=== PATIENT | female | born 1980 | race Caucasian/White ===

== ENCOUNTER → 2017-03-04 | Outpatient (CLI) | payer BC ==
--- NOTE | 2017-03-04 07:52 | US ---
EXAMINATION TYPE: US pelvic complete DATE OF EXAM: 03/04/2017 COMPARISON: 07/25/2016 CLINICAL HISTORY: Previous Ovarian Cyst N83.20. TECHNIQUE: Transabdominal (TA) Date of LMP: 02/24/2017 EXAM MEASUREMENTS: Uterus: 9.8 x 3.8 x 4.0 cm Endometrial Stripe: 0.4 cm Right Ovary: 4.2 x 2.7 x 3.2 cm Left Ovary: 5.1 x 3.8 x 4.1 cm 1. Uterus: Anteverted 2. Endometrium: wnl 3. Right Ovary: wnl 4. Left Ovary: 3.5 x 2.2 x 4.1 cm cyst 5. Bilateral Adnexa: wnl 6. Posterior cul-de-sac: wnl IMPRESSION: 1. There is a 3.5 x 4.1 cm left ovarian cyst. This has a simple appearance and is slightly increased in size from previous exam.
== END | disposition home or self-care (01) ==
LOC: RADUSWWP 06:47
PROVIDERS: ATTEND Obstetrics & Gynecology
DX: N83.202 Unspecified ovarian cyst, left side (principal)
CPT/HCPCS: 76856

== ENCOUNTER → 2017-05-14 | Outpatient (CLI) | payer BC ==
[2017-05-14 09:54] LABS: EKG EKG PERFORMED
[2017-05-14 10:27] LABS: Anion Gap 11 mmol/L; Blood Urea Nitrogen 7 mg/dL (7-17); Calcium 9.3 mg/dL (8.4-10.2); Carbon Dioxide 20 mmol/L (22-30); Chloride 108 mmol/L (98-107); Glucose 80 mg/dL (74-99); Non-African American GFR(MDRD) >60 (>60 ml/min/1.73 sqM); Sodium 139 mmol/L (137-145)
[2017-05-14 10:48] LABS: Basophils # (A) 0.1 k/uL (0-0.2); Basophils % (A) 1 %; CH 30.9; Eosinophils # (A) 0.1 k/uL (0-0.7); Eosinophils % (A) 1 %; HCT 43.4 % (34.0-46.0); HDW 2.36; HGB 13.7 gm/dL (11.4-16.0); Luc # (Auto) 0.16; Luc % (Auto) 2; Lymphocytes # (A) 1.3 k/uL (1.0-4.8); Lymphocytes % (A) 17 %; MCH 30.6 pg (25.0-35.0); MCHC 31.6 g/dL (31.0-37.0); Mean Platelet Volume 7.6; Monocytes # (A) 0.3 k/uL (0-1.0); Monocytes % (A) 5 %; Neutrophils # (A) 5.7 k/uL (1.3-7.7); Neutrophils % (A) 75 %; RBC 4.48 m/uL (3.80-5.40); WBC 7.6 k/uL (3.8-10.6); WBC (Perox) 7.68
== END | disposition home or self-care (01) ==
LOC: LABWHC1 09:46
PROVIDERS: ATTEND Orthopaedic Surgery
DX: Z01.810 Encounter for preprocedural cardiovascular examination (principal); I49.49 Other premature depolarization; D61.3 Idiopathic aplastic anemia
CPT/HCPCS: 36415; 80048; 85025; 93005

== ENCOUNTER 2018-02-17 05:43 | Day surgery (SDC) | payer BC ==
[2018-02-10 09:30] VITALS: BMI 38.7
--- NOTE | 2018-02-16 14:40 | P.HPOB ---
History of Present Illness H&P Date: 02/16/18 Chief Complaint: Left ovarian cyst, pelvic pain, menorrhagia, family planning This is a 37-year-old female 1 para 1 who presents for laparoscopy with possible drainage of ovarian cysts, possible lysis of adhesions, and possible ablation of endometriosis. She has also consented to laparoscopic bilateral tubal ligation via fulguration in addition to dilation and curettage with hysteroscopy and NovaSure endometrial ablation secondary to menorrhagia with irregular cycle. She has had several ultrasounds that have consistently shown a left ovarian cyst measuring approximately 3-1/2 cm. She has tried control pills to help with her cyst pain and control her cycles, however her periods are still irregular and she continues to breakthrough bleed. She consistently has left pelvic pain at least twice a month which is sharp and stinging in nature and exacerbated by movement. The pain is severe when it hits but only lasts about 5 minutes. Obstetrical history: . History of 1 delivery due to preeclampsia Gynecologic history: No history of sexual transmitted diseases. She is currently using control pills for control. Social history: She is . She currently works as a field consultant with a [employer] Review of Systems Constitutional: Denies chills, Denies fever Eyes: denies blurred vision, denies pain Ears, nose, mouth and throat: Denies sore throat Cardiovascular: Denies chest pain, Denies shortness of breath Gastrointestinal: Reports diarrhea, Reports heartburn, Denies abdominal pain, Denies nausea, Denies vomiting Genitourinary: Reports dysmenorrhea, Reports pelvic pain Menstruation: Reports menses variable Musculoskeletal: Reports low back pain, Reports myalgias Integumentary: Denies pruritus, Denies rash Neurological: Reports headaches, Denies numbness, Denies weakness Psychiatric: Denies anxiety, Denies depression Endocrine: Denies fatigue, Denies weight change Past Medical History Past Medical History: GERD/Reflux, Osteoarthritis (OA) Additional Past Medical History / Comment(s): Hx. of HTN when . Hx. of a tick bite. States was not dx. with Lyme disease. History of hepatomegaly- testing within normal limits History of Any Multi-Drug Resistant Organisms: None Reported Past Surgical History: Adenoidectomy, Section, Cholecystectomy, Orthopedic Surgery Additional Past Surgical History / Comment(s): Colonoscopy and upper scope. L & R knee arthroscopy. R foot surgery with pins. Past Anesthesia/Blood Transfusion Reactions: No Reported Reaction Past Psychological History: No Psychological Hx Reported Smoking Status: Never smoker Past Alcohol Use History: None Reported Past Drug Use History: None Reported - Past Family History Mother Family Medical History: Diabetes Mellitus Father Family Medical History: Deep Vein Thrombosis (DVT) Medications and Allergies Home Medications Medication Instructions Recorded Confirmed Type Ibuprofen [Motrin] 800 mg PO DAILY 02/10/18 02/10/18 History Triestarylla 1 tab PO DAILY 02/10/18 02/10/18 History Turmeric Root Extract [Turmeric] 500 mg PO DAILY 02/10/18 02/10/18 History Allergies Allergy/AdvReac Type Severity Reaction Status Date / Time doxycycline Allergy Rash/Hives Verified 02/10/18 09:36 Exam Osteopathic Statement: *. No significant issues noted on an osteopathic structural exam other than those noted in the History and Physical/Consult. HEENT: Within normal limits Heart: Regular rate and rhythm Lungs: Clear to auscultation bilaterally Abdomen: Soft, nontender Pelvic exam: Uterus is small, anteverted, with no adnexal masses palpated however tenderness is noted on the uterus and the left adnexal region. Extremities: Negative Homans Assessment and Plan (1) Pelvic pain Status: Acute Code(s): R10.2 - PELVIC AND PERINEAL PAIN SNOMED Code(s): 15140623 (2) Left ovarian cyst Status: Acute Code(s): N83.202 - UNSPECIFIED OVARIAN CYST, LEFT SIDE SNOMED Code(s): 93699637 (3) Menorrhagia with irregular cycle Status: Acute Code(s): N92.1 - EXCESSIVE AND FREQUENT MENSTRUATION WITH IRREGULAR CYCLE SNOMED Code(s): 584184449 (4) Family planning Status: Acute Code(s): Z30.09 - ENCOUNTER FOR OTH GENERAL CNSL AND ADVICE ON CONTRACEPTION SNOMED Code(s): 329538368 Plan: Proceed with dilation and curettage with hysteroscopy and NovaSure endometrial ablation, laparoscopy with bilateral tubal ligation via fulguration and possible drainage of ovarian cysts, possible ablation of endometriosis, possible lysis of adhesions. I have discussed the risks, benefits, and alternative therapies for the above- mentioned procedure and for both sedation/anesthesia as well as necessary blood products administration, if indicated, as they pertain to this patient. The patient has indicated her understanding and acceptance of the risks and procedures discussed.
[~2018-02-17 05:43] MED LIST: DEXAMETHASONE SOD PHOSPHATE 10 MG/ML 1 ML VIAL IV ONE; HYDROmorphone 0.5 MG/0.5 ML SYRINGE IVP PRN; LACTATED RINGERS 1,000 ML IV SCH; LIDOCAINE 1% 20 ML VIAL (10MG/ML) FOR IV START INTRADERMA PRN; MIDAZOLAM 2 MG/2 ML VIAL IV PRN; ONDANSETRON 4 MG/2 ML VIAL IVP ONE; Pre Op ABX Message 1 EACH MISC MISCELLANE ONE; fentaNYL (PF) 50 MCG/ML 2 ML AMP IV PRN
[2018-02-17] MEDS ORDERED: fentaNYL (PF) 50 MCG/ML 2 ML AMP ONE (07:29)
[2018-02-17] MEDS ORDERED: NEOSTIGMINE 1 MG/ML 10 ML VIAL ONE (07:29)
[2018-02-17] MEDS ORDERED: PROPOFOL 10 MG/ML 20 ML VIAL IV ONE (07:29)
[2018-02-17] MEDS ORDERED: SUCCINYLCHOLINE CHLORIDE 100 MG/5 ML SYR IV ONE (07:29)
[2018-02-17] MEDS ORDERED: KETOROLAC 30 MG/ML 1 ML VIAL ONE (07:29)
[2018-02-17] MEDS ORDERED: LIDOCAINE 1% INJ 10MG/ML (20 ML MDV) ONE (07:29)
[2018-02-17] MEDS ORDERED: ROCURONIUM BROMIDE 10 MG/ML 10 ML VIAL IV ONE (07:29)
[2018-02-17] MEDS ORDERED: HYDROmorphone (PF) 1 MG/ML ONE (07:29)
[2018-02-17] MEDS ORDERED: MIDAZOLAM 2 MG/2 ML VIAL ONE (07:29)
[2018-02-17] MEDS ORDERED: GLYCOPYRROLATE 0.2 MG/ML 2 ML VIAL ONE (07:29)
[2018-02-17] MEDS ORDERED: ROPIVACAINE 5MG/ML 20ML VIAL MISCELLANE ONE ×3 (08:03)
[2018-02-17] MEDS ORDERED: LACTATED RINGERS 1,000 ML IV ONE (08:45)
--- NOTE | 2018-02-17 08:55 | P.OP ---
Date of Procedure: 02/17/18 Preoperative Diagnosis: 1. Pelvic pain. 2. And left ovarian cyst. 3. Menorrhagia with irregular cycle. 4. Family-planning. Postoperative Diagnosis: Same plus large omental adhesion and uterine adhesion to the anterior wall Procedure(s) Performed: Dilation and curettage with hysteroscopy and NovaSure endometrial ablation Laparoscopic bilateral tubal ligation via fulguration Drainage of left ovarian cyst Anesthesia: ARIELLA Surgeon: Pebbles Beltrán Estimated Blood Loss (ml): 20 Pathology: other (Endometrial curettings) Condition: stable Disposition: same day Indications for Procedure: This is a 37-year-old female 1 para 1 who presents for laparoscopy with possible drainage of ovarian cysts, possible lysis of adhesions, and possible ablation of endometriosis. She has also consented to laparoscopic bilateral tubal ligation via fulguration in addition to dilation and curettage with hysteroscopy and NovaSure endometrial ablation secondary to menorrhagia with irregular cycle. She has had several ultrasounds that have consistently shown a left ovarian cyst measuring approximately 3-1/2 cm. She has tried control pills to help with her cyst pain and control her cycles, however her periods are still irregular and she continues to breakthrough bleed. She consistently has left pelvic pain at least twice a month which is sharp and stinging in nature and exacerbated by movement. The pain is severe when it hits but only lasts about 5 minutes. Operative Findings: Uterus is small and anteverted. Cervix is sounded to 3 cm and uterus is sounded to 10 cm. Upon hysteroscopy, fairly uniform endometrium appearance was noted. Minimal to moderate endometrial curettings are obtained. On laparoscopy , there is a large omental adhesion to the anterior midline abdominal wall. There is also noted to be a uterine adhesion to the anterior abdominal wall more towards the left side of the uterus. The left ovary did have a simple- appearing cyst approximate 3-4 cm. The right ovary also had a small simple cyst approximate 2-3 cm. Both tubes appeared normal. No evidence of endometriosis was noted. Description of Procedure: The patient is taken to the operating room. She is placed in the dorsal lithotomy position after general anesthesia was given. She is prepped and draped in the normal sterile fashion. Bladder is drained with a catheter and then removed. Pelvic exam is performed under anesthesia. Uterus is found to be anteverted with no adnexal masses. She is placed in slight Trendelenburg position. A right angle retractor is used to visualize the cervix. The anterior lip of the cervix is grasped with a single-tooth tenaculum. Cervix is sounded to 3 cm. Uterus is sounded to 10 cm. Cervix is gently dilated with Galan dilators until a hysteroscope could be passed. Hysteroscopy is performed using normal saline. The above noted findings are noted. Next a polyp forceps is introduced. A minimal amount of tissue was obtained. Next medium-sized size sharp curette was placed. A moderate amount of endometrial curettings were obtained. Next NovaSure array was inserted into the endometrial cavity. Length was set at 6.5 cm and width was determined to be 3.5 cm. Next cavity assessment was completed and passed on the first try. Next NovaSure array was fired at 125 W for 44 seconds. Next the array was removed, inspected and then discarded. Next the hysteroscope was reinserted. Uniform charring was noted. Pictures were taken. Hysteroscope was removed. Next a kroner uterine manipulator is inserted through the cervix and the balloon is inflated. Single- tooth tenaculum was removed from the anterior lip of the cervix. Minimal bleeding was noted. All other instruments removed from the vagina. Attention is then turned to the abdomen. The infraumbilical fold was grasped in transverse fashion with 2 Allis clamps. A small transverse incision was made with a scalpel. A hemostat was used to carry the incision down to the underlying layer of fascia. A towel clip was placed above the umbilicus for retraction. A 11 mm disposable bladeless trocar was then inserted into the peritoneal cavity under direct visualization. Once inside, pneumoperitoneum was achieved with CO2 gas. The insert was removed and the camera was placed. Intraperitoneal placement was confirmed. No bleeding was noted. Next the patient was placed in Trendelenburg position. A small stab incision was made suprapubically and a 5 mm disposable bladeless trocar was inserted into the peritoneal cavity under direct visualization just to the right of the midline. Once inside pelvic contents were inspected. There was noted to be a large omental adhesion anteriorly extending from near the umbilicus all the way down to the uterus. A second 5 mm disposable blade this trocar was placed in the right lower quadrant for easier access to the omental adhesion. A monopolar Metzenbaum scissor was used to meticulously take down the adhesion using cautery and cutting. Once the adhesion was freed, the uterus was visualized better and there was noted to be a thick band of uterus that was attached to the anterior abdominal wall more towards the left side. The left ovary was visualized and appeared to have approximately 3-4 cm cyst in the right ovary also had a small simple cyst approximately 2-3 cm. Each of the cysts was opened with Metzenbaum scissors and monopolar cautery. Clear fluid was drained from both ovaries. Next a bipolar Kleppinger instrument was placed through the inferior trocar and the midportion of each tube was brought away from other structures and completely fulgurated on approximate 2-3 cm segment of each tube. Excellent hemostasis was noted. Suction irrigation was carried out and good hemostasis was again noted. A picture was taken. Pneumoperitoneum was released after the inferior trocars were removed under direct visualization. The upper trocar was then removed. The fascial incision was closed with 0 Vicryl suture in interrupted [id number] stitch. The skin incisions were then closed with 4-0 Vicryl suture in a subcuticular fashion. Next the kroner uterine manipulator was removed. Minimal bleeding was noted. All sponge and needle counts are correct. The patient is then taken to recovery room in stable condition.
[2018-02-17 09:14] VITALS: RESP 16; TEMP 97.9
[2018-02-17] MEDS ORDERED: HYDROcodone/APAP 5-325MG 1 EACH TAB PO ONE (11:01)
[2018-02-17 11:48] VITALS: BP 135/88; PULSE 94
== END 2018-02-17 12:00 | disposition home or self-care (01) ==
LOC: OR 05:43
PROVIDERS: ATTEND Obstetrics & Gynecology
DX: N92.1 Excessive and frequent menstruation with irregular cycle (principal); N83.292 Other ovarian cyst, left side; N83.291 Other ovarian cyst, right side; Z30.2 Encounter for sterilization; N73.6 Female pelvic peritoneal adhesions (postinfective); K21.9 Gastro-esophageal reflux disease without esophagitis; M19.90 Unspecified osteoarthritis, unspecified site; Z88.1 Allergy status to other antibiotic agents; Z79.1 Long term (current) use of non-steroidal anti-inflammatories (NSAID); Z79.3 Long term (current) use of hormonal contraceptives; Z79.899 Other long term (current) drug therapy; Z83.3 Family history of diabetes mellitus
CPT/HCPCS: 81025; 88305; 58563; 49322; 58670; J2250; J1100; J2710; J2405; J2001; J3010; J1885; J1170 ×2; J0330; J2704; J2795

== ENCOUNTER → 2018-05-30 | Outpatient (CLI) | payer BC ==
--- NOTE | 2018-05-30 13:08 | US ---
EXAMINATION TYPE: US venous doppler duplex LE RT DATE OF EXAM: 05/30/2018 1:02 PM COMPARISON: NONE CLINICAL HISTORY: M79.671 Pain, I80.9 Phlebitis and thrombophlebitis. Pt having right leg pain s/p jones rdware removal on 05/15/18 SIDE PERFORMED: Right TECHNIQUE: The lower extremity deep venous system is examined utilizing real time linear array sonog aly with graded compression, doppler sonography and color-flow sonography. VESSELS IMAGED: External Iliac Vein (EIV) Common Femoral Vein Deep Femoral Vein Greater Saphenous Vein * Femoral Vein Popliteal Vein Small Saphenous Vein * Proximal Calf Veins (* superficial vessels) Right Leg: Negative for DVT Results called to Sarahi at Dr's office at time of exam IMPRESSION: 1. Right lower extremity ultrasound negative for deep venous thrombosis.
== END | disposition home or self-care (01) ==
LOC: RADUSWWP 12:41
PROVIDERS: ATTEND Orthopaedic Surgery
DX: I80.9 Phlebitis and thrombophlebitis of unspecified site (principal); T84.84XA Pain due to internal orthopedic prosthetic devices, implants and grafts, initial encounter; K21.9 Gastro-esophageal reflux disease without esophagitis; R11.0 Nausea; M79.671 Pain in right foot; Z48.89 Encounter for other specified surgical aftercare; Z98.890 Other specified postprocedural states

== ENCOUNTER → 2018-09-01 | Outpatient (CLI) | payer BC ==
--- NOTE | 2018-09-01 12:20 | CT ---
EXAMINATION TYPE: CT abdomen pelvis w con DATE OF EXAM: 09/01/2018 HISTORY: Abdominal pain CT DLP: 2624.5mGycm Automated Exposure Control for Dose Reduction was Utilized. CONTRAST: CT scan of the abdomen and pelvis is performed with IV Contrast, patient injected with 100 mL of Isov ue 300. COMPARISON: Pelvic ultrasound dated 03/04/2017. FINDINGS: LUNG BASES: No significant abnormality is appreciated. LIVER/GB: No significant abnormality is appreciated. Cholecystectomy clips are present. PANCREAS: Mild parenchymal atrophy is seen. SPLEEN: No significant abnormality is seen. ADRENALS: No significant abnormality is seen. KIDNEYS: No significant abnormality is seen. BOWEL: There is a small hiatal hernia noted. No dilated large or small bowel. UTERUS/ADNEXA: 1.9 cm peripherally enhancing right ovarian lesion is seen in addition to prominence o f the bilateral ovaries with cystic change on the left. There is heterogeneity of the uterus with 5 m m lesion in the uterine body on coronal image 52, possibly represent a uterine leiomyoma. LYMPH NODES: No greater than 1cm abdominal or pelvic lymph nodes are appreciated. OSSEOUS STRUCTURES: Minimal multilevel degenerative changes of the spine are noted. IMPRESSION: 1. Crenulated appearing right ovarian lesion likely representing an involuting hemorrhagic cyst. Cyst ic lesion of the left ovary is also seen that could be further evaluated with pelvic ultrasound in th is patient with a history of endometriosis. 2. Small hiatal hernia.
== END | disposition home or self-care (01) ==
LOC: RADCTMAIN 07:57
PROVIDERS: ATTEND Internal Medicine
DX: N80.1 Endometriosis of ovary (principal); N83.202 Unspecified ovarian cyst, left side; K44.9 Diaphragmatic hernia without obstruction or gangrene
CPT/HCPCS: 74177; Q9967

== ENCOUNTER 2018-11-25 11:04 | Day surgery (SDC) | payer BC ==
[2018-11-20 14:44] VITALS: BMI 39.5
[~2018-11-25 11:04] MED LIST changes: -DEXAMETHASONE SOD PHOSPHATE 10 MG/ML 1 ML VIAL IV ONE; -HYDROmorphone 0.5 MG/0.5 ML SYRINGE IVP PRN; -MIDAZOLAM 2 MG/2 ML VIAL IV PRN; -ONDANSETRON 4 MG/2 ML VIAL IVP ONE; -Pre Op ABX Message 1 EACH MISC MISCELLANE ONE; -fentaNYL (PF) 50 MCG/ML 2 ML AMP IV PRN
[2018-11-25 11:44] VITALS: PULSE 98; RESP 16; TEMP 98.5
[2018-11-25] MEDS ORDERED: fentaNYL (PF) 50 MCG/ML 2 ML AMP ONE (12:03)
[2018-11-25] MEDS ORDERED: MIDAZOLAM 2 MG/2 ML VIAL ONE (12:03)
[2018-11-25] MEDS ORDERED: PROPOFOL 10 MG/ML 20 ML VIAL IV ONE (12:03)
--- NOTE | 2018-11-25 13:01 | P.PCN ---
Date of Procedure: 11/25/18 Procedure(s) Performed: Procedures: 1. Esophagogastroduodenoscopy and biopsy. 2. Colonoscopy and biopsy. Preoperative diagnosis: Change in bowel habits and chronic reflux symptoms. Postoperative diagnosis: 1. Sliding hiatal hernia with no definite esophagitis or complicated reflux disease. 2. Diffuse gastritis with multiple gastric body polyps. 3. Colon and terminal ileum within normal limits. 4. Biopsies obtained from the duodenum, antrum, gastric body polyps, esophagus, terminal ileum and right colon. Preparation: HalfLytely prep. Sedation: Was provided by anesthesia. Brief clinical history: The patient is a 37-year-old female who I have evaluated in the office earlier this month regarding long-standing complaints of digestive issues. She has been having loose stools and diarrhea intermittently since her gallbladder surgery back in 2006. She has chronic reflux symptoms and bloating. She takes omeprazole but still has breakthrough symptoms. She feels that she has intolerance to dairy products and high sugar foods. No recent upper endoscopy or colonoscopy. This evaluation is to assess for complicated reflux disease, celiac disease, inflammatory bowel disease or other pathology. Procedure: With the patient on her left lateral decubitus position and after informed consent and adequate sedation, I passed the Olympus-GIF H 190 video upper endoscope through the cricopharyngeus down the esophagus. GE junction was around 36 cm from the incisors and there was a small sliding hiatal hernia but no obvious esophagitis or complicated reflux disease. The endoscope was then passed into the stomach which was insufflated with air and inspected in detail including the retroflex view in the cardia. There was diffuse mottling and erythema and some friability and there were multiple regenerative gastric body polyps. Pyloric channel did not show any ulcers. Duodenal bulb, post bulbar area and descending duodenum appeared within normal limits. I obtained biopsies from the duodenum, antrum, gastric body polyps and esophagus then the endoscope was withdrawn and I proceeded to perform the colonoscopy. Perianal area did not show any fissures or fistulas. There were no masses felt on digital rectal examination. The Olympus CFH 190 L video colonoscope was then inserted in the rectum and the usual fashion and advanced to the cecum. I intubated the ileocecal valve and examined the terminal ileum. Terminal ileum and colon appeared healthy with no edema, erythema, friability, ulceration, exudation or spontaneous bleeding. No polyps or tumors were seen or any obvious diverticular disease or other pathology. I obtained biopsies from the terminal ileum and right colon then I retroflexed the endoscope in the rectum before the endoscope was withdrawn. The patient tolerated the procedure well. Plan: The patient was reassured. Will await biopsy results. I will see her in follow-up in the office and make additional recommendations. I will keep you updated on her progress.
[2018-11-25 13:25] VITALS: BP 134/88
== END 2018-11-25 13:31 | disposition home or self-care (01) ==
LOC: ORWHC2ENDO 11:04
DX: K21.0 Gastro-esophageal reflux disease with esophagitis (principal); K29.50 Unspecified chronic gastritis without bleeding; K31.7 Polyp of stomach and duodenum; K44.9 Diaphragmatic hernia without obstruction or gangrene; K52.9 Noninfective gastroenteritis and colitis, unspecified; M19.90 Unspecified osteoarthritis, unspecified site; I10 Essential (primary) hypertension; Z79.1 Long term (current) use of non-steroidal anti-inflammatories (NSAID); Z79.899 Other long term (current) drug therapy; Z88.1 Allergy status to other antibiotic agents
CPT/HCPCS: 81025; 88305; 45380; 43239; J2250; J3010; J2704

== ENCOUNTER → 2021-08-16 | Outpatient (CLI) | payer BC, OTHER ==
--- NOTE | 2021-08-17 09:11 | MM ---
Reason for exam: screening (asymptomatic). History: Taking hormonal contraceptives beginning at age 18. Physical Findings: A clinical breast exam by your physician is recommended on an annual basis and results should be correlated with mammographic findings. MG Screening Mammo w CAD Bilateral CC and MLO view(s) were taken. The breast tissue is heterogeneously dense. This may lower the sensitivity of mammography. Finding: There are typically benign round, diffuse/scattered calcifications in the left breast, greater than right breast. There is no discrete abnormality. ASSESSMENT: Benign, BI-RAD 2 RECOMMENDATION: Routine screening mammogram of both breasts in 1 year.
== END | disposition home or self-care (01) ==
LOC: RADMAMWWP 10:25
PROVIDERS: ATTEND Obstetrics & Gynecology
DX: Z12.31 Encounter for screening mammogram for malignant neoplasm of breast (principal)
CPT/HCPCS: 77067

== ENCOUNTER 2024-12-25 18:00 | Emergency (ER) | payer BC ==
--- NOTE | 2024-12-25 18:37 | ED ---
SOB HPI - General Source: patient <Paige Segura - Last Filed: 12/25/24 18:35> <Sammy Underwood - Last Filed: 01/18/25 15:36> - General Stated Complaint: SOB Time Seen by Provider: 12/25/24 18:35 - History of Present Illness Initial Comments: Quick [id number] female presenting for chest pain x 1 week with associated shortness of breath. Reports a heavy chest pain that has been worsening over the past week. She does reports she has been short of breath for the past month and believes she is retaining fluid. She was sent from urgent care for further evaluation. (ColtonPaige) - Related Data Home Medications Medication Instructions Recorded Confirmed Omeprazole 20 mg PO DAILY 02/17/18 12/25/24 Acetaminophen Tab [Tylenol] 650 mg PO BID 12/25/24 12/25/24 Apple Cider Vinegar Gummy (Unknown 1 tab PO HS 12/25/24 12/25/24 Dose) Biotin Gummy (Unknown Dose) 1 tab PO HS 12/25/24 12/25/24 Elderberry Gummy (Unknown Dose) 1 tab PO HS 12/25/24 12/25/24 Ibuprofen [Advil] 400 mg PO BID 12/25/24 12/25/24 Keratin Gummy (Unknown Dose) 1 tab PO HS 12/25/24 12/25/24 Multivitamin [Multivitamins Adult 1 tab PO HS 12/25/24 12/25/24 Gummies] diphenhydrAMINE HCL [Benadryl] 25 mg PO HS 12/25/24 12/25/24 norethindrone-e.estradioL-iron 1 tab PO DAILY 12/25/24 12/25/24 [Aurovela Fe 1.5 mg-30 Mcg Tab] Previous Rx's Medication Instructions Recorded Metoprolol Tartrate 25 mg PO BID #60 tab 12/26/24 hydroCHLOROthiazide 25 mg PO DAILY #15 tablet 12/26/24 Allergies Allergy/AdvReac Type Severity Reaction Status Date / Time doxycycline Allergy Rash/Hives Verified 12/25/24 19:56 Review of Systems ROS Other: All systems not noted in ROS Statement are negative. <SeguraPaige - Last Filed: 12/25/24 18:35> ROS Other: All systems not noted in ROS Statement are negative. <Sammy Underwood - Last Filed: 01/18/25 15:36> ROS Statement: Those systems with pertinent positive or pertinent negative responses have been documented in the HPI. Past Medical History Past Medical History: GERD/Reflux, Osteoarthritis (OA) Additional Past Medical History / Comment(s): Hx. of HTN when . History of hepatomegaly-testing within normal limits History of Any Multi-Drug Resistant Organisms: None Reported Past Surgical History: Adenoidectomy, Section, Cholecystectomy, Orthopedic Surgery, Tubal Ligation, Uterine Ablation Additional Past Surgical History / Comment(s): Colonoscopy and upper scope. L & R knee arthroscopy. R foot surgery with pins-pins later removed Past Anesthesia/Blood Transfusion Reactions: No Reported Reaction Past Psychological History: No Psychological Hx Reported Past Alcohol Use History: None Reported Past Drug Use History: None Reported - Past Family History Mother Family Medical History: Diabetes Mellitus Father Family Medical History: Deep Vein Thrombosis (DVT) <ColtonPaige - Last Filed: 12/25/24 18:35> General Exam <ColtonPaige - Last Filed: 12/25/24 18:35> - General Exam Comments Initial Comments: Visual Physical Exam General: Well-appearing, nontoxic, no acute distress. Head: Normocephalic, atraumatic Eyes: PERRLA, EOMI ENT: Airway patent Chest: Nonlabored breathing Skin: No visual rash, normal skin tone Neuro: Alert and oriented 3 Musculoskeletal: No gross abnormalities (Paige Segura) Course Vital Signs 12/25/24 12/25/24 12/25/24 18:45 21:06 22:39 Temperature 98.0 F 100.0 F H Pulse Rate 104 H 103 H 98 Respiratory 22 21 Rate Blood Pressure 156/112 173/115 142/86 O2 Sat by Pulse 99 99 97 Oximetry 12/25/24 12/26/24 23:28 00:43 Temperature 98.0 F 98.1 F Pulse Rate 93 Respiratory 20 Rate Blood Pressure 138/92 O2 Sat by Pulse 96 Oximetry Medical Decision Making <ColtonPaige - Last Filed: 12/25/24 18:35> - Lab Data Result diagrams: 12/25/24 19:02 12/25/24 19:02 <Sammy Underwood - Last Filed: 01/18/25 15:36> - Medical Decision Making I completed the quick note portion of this chart signed Paige Segura PA-C (Paige Segura) The patient had chest x-ray that I interpreted as negative for acute infiltrate, pneumothorax, congestive heart failure The patient had CT scan of the chest that I interpreted as negative for acute pulmonary embolism. No evident dissection. Was pt. sent in by a medical professional or institution (, PA, HOME CARE PHYSICAL THERAPIST, urgent care, hospital, or senior living...) When possible be specific @ -[No] Did you speak to anyone other than the patient for history (EMS, parent, family, police, friend...)? What history was obtained from this source @ -[No] Did you review nursing and triage notes (agree or disagree)? Why? @ -[I reviewed and agree with nursing and triage notes] Were old charts reviewed (outside hosp., previous admission, EMS record, old EKG, old radiological studies, urgent care reports/EKG's, senior living records)? Report findings @ -[No old charts were reviewed] Differential Diagnosis (chest pain, altered mental status, abdominal pain women, abdominal pain men, vaginal bleeding, weakness, fever, dyspnea, syncope, headache, dizziness, GI bleed, back pain, seizure, CVA, palpatations, mental he alth, musculoskeletal)? @ -[Differential Chest Pain: Stable Angina, Unstable Angina, STEMI, NSTEMI Aortic Dissection, Pneumothorax, Musculoskeletal, Esophageal Spasm GERD, Cholecystitis, Pancreatitis, Zoster, this is not meant to be an all-inclusive list. EKG interpreted by me (3pts min.). @ -[I interpreted as above] X-rays interpreted by me (1pt min.). @ -[I interpreted as above CT interpreted by me (1pt min.). @ -[None done] U/S interpreted by me (1pt. min.). @ -[None done] What testing was considered but not performed or refused? (CT, X-rays, U/S, labs)? Why? @ -[None] What meds were considered but not given or refused? Why? @ -[None] Did you discuss the management of the patient with other professionals (professionals i.e. , ANTELMO, HOME CARE PHYSICAL THERAPIST, lab, RT, psych nurse, social services analyst, costuming supervisor, teacher, staff air tactical officer, case specialist)? Give summary @ -[No] Was smoking cessation discussed for >3mins.? @ -[No] Was critical care preformed (if so, how long)? @ -[No] Were there social determinants of health that impacted care today? How? (Homelessness, low income, unemployed, alcoholism, drug addiction, transportation, low edu. Level, literacy, decrease access to med. care, custodial, rehab)? @ -[No] Was there de-escalation of care discussed even if they declined (Discuss DNR or withdrawal of care, Hospice)? DNR status @ -[No] What co-morbidities impacted this encounter? (DM, HTN, Smoking, COPD, CAD, Cancer, CVA, ARF, Chemo, Hep., AIDS, mental health diagnosis, sleep apnea, morbid obesity)? @ -[None] Was patient admitted / discharged? Hospital course, mention meds given and route, prescriptions, significant lab abnormalities, going to OR and other pertinent info. @ -[Patient is 44-year-old woman here to have evaluation of chest pain and hypertension. The patient did have response to antihypertensives. Following the workup the patient is stable to have continued evaluation and treatment for her hypertension as outpatient. Discussed appropriate further care and follow-up as well as return parameters Undiagnosed new problem with uncertain prognosis? @ -[No] Drug Therapy requiring intensive monitoring for toxicity (Heparin, Nitro, Insulin, Cardizem)? @ -[No] Were any procedures done? @ -[No] Diagnosis/symptom? @ -[Acute chest pain Hypertension Acute, or Chronic, or Acute on Chronic? @ -[Acute Uncomplicated (without systemic symptoms) or Complicated (systemic symptoms)? @ -[Uncomplicated Side effects of treatment? @ -[No] Exacerbation, Progression, or Severe Exacerbation? @ -[No] Poses a threat to life or bodily function? How? (Chest pain, [place], CO, pneumonia, PE, COPD, DKA, ARF, appy, cholecystitis, CVA, Diverticulitis, Homicidal, Suicidal, threat to staff... and all critical care pts) @ -[No] All treatments are based on ideal body weight as in ED triage (Sammy Underwood) - Lab Data Lab Results 12/25/24 12/25/24 12/25/24 Range/Units 19:02 19:02 19:02 WBC 8.87 (4.50-10.00) 10*3/uL RBC 4.01 L (4.10-5.20) 10*6/uL Hgb 11.8 L (12.0-15.0) g/dL Hct 34.8 L (37.2-46.3) % MCV 86.8 (80.0-97.0) fL MCH 29.4 (27.0-32.0) pg MCHC 33.9 (32.0-37.0) g/dL Plt Count 385 (140-440) 10*3/uL MPV 11.3 (9.5-12.2) fL Immature Gran % (Auto) 0.2 % Neutrophils % 67.5 % Lymphocytes % 26.2 % Monocytes % 4.3 % Eosinophils % 1.0 % Basophils % 0.8 % Immature Gran # 0.02 (0.00-0.04) 10*3/uL Neutrophils # 5.99 (1.80-7.70) 10*3/uL Lymphocytes # 2.32 (0.90-5.00) 10*3/uL Monocytes # 0.38 (0.20-1.00) 10*3/uL Eosinophils # 0.09 (0.04-0.35) 10*3/uL Basophils # 0.07 (0.00-0.10) 10*3/uL PT 10.0 (10.0-12.5) sec INR 0.9 (<1.2) APTT 21.9 L (22.0-30.0) sec D-Dimer (<0.60) mg/L FEU Sodium 137 (137-145) mmol/L Potassium 4.9 (3.5-5.1) mmol/L Chloride 107 (98-107) mmol/L Carbon Dioxide 21 L (22-30) mmol/L Anion Gap 9 mmol/L BUN 11 (7-17) mg/dL Creatinine 0.58 (0.52-1.04) mg/dL Est GFR (CKD-EPI)AfAm >90 (>60 ml/min/1.73 sqM) Est GFR (CKD-EPI)NonAf >90 (>60 ml/min/1.73 sqM) Glucose 109 H (74-99) mg/dL Plasma Lactic Acid Magdy (0.7-2.0) mmol/L Calcium 8.9 (8.4-10.2) mg/dL Magnesium 2.0 (1.6-2.3) mg/dL Total Bilirubin 0.7 (0.2-1.3) mg/dL AST 37 H (14-36) U/L ALT 28 (4-34) U/L Alkaline Phosphatase 71 (38-126) U/L Troponin I (0.000-0.034) ng/mL NT-Pro-B Natriuret Pep 3470 pg/mL Total Protein 7.6 (6.3-8.2) g/dL Albumin 4.3 (3.5-5.0) g/dL 12/25/24 12/25/24 12/25/24 Range/Units 19:02 19:02 21:01 WBC (4.50-10.00) 10*3/uL RBC (4.10-5.20) 10*6/uL Hgb (12.0-15.0) g/dL Hct (37.2-46.3) % MCV (80.0-97.0) fL MCH (27.0-32.0) pg MCHC (32.0-37.0) g/dL Plt Count (140-440) 10*3/uL MPV (9.5-12.2) fL Immature Gran % (Auto) % Neutrophils % % Lymphocytes % % Monocytes % % Eosinophils % % Basophils % % Immature Gran # (0.00-0.04) 10*3/uL Neutrophils # (1.80-7.70) 10*3/uL Lymphocytes # (0.90-5.00) 10*3/uL Monocytes # (0.20-1.00) 10*3/uL Eosinophils # (0.04-0.35) 10*3/uL Basophils # (0.00-0.10) 10*3/uL PT (10.0-12.5) sec INR (<1.2) APTT (22.0-30.0) sec D-Dimer 0.79 H (<0.60) mg/L FEU Sodium (137-145) mmol/L Potassium (3.5-5.1) mmol/L Chloride (98-107) mmol/L Carbon Dioxide (22-30) mmol/L Anion Gap mmol/L BUN (7-17) mg/dL Creatinine (0.52-1.04) mg/dL Est GFR (CKD-EPI)AfAm (>60 ml/min/1.73 sqM) Est GFR (CKD-EPI)NonAf (>60 ml/min/1.73 sqM) Glucose (74-99) mg/dL Plasma Lactic Acid Magdy 0.6 L (0.7-2.0) mmol/L Calcium (8.4-10.2) mg/dL Magnesium (1.6-2.3) mg/dL Total Bilirubin (0.2-1.3) mg/dL AST (14-36) U/L ALT (4-34) U/L Alkaline Phosphatase (38-126) U/L Troponin I 0.020 (0.000-0.034) ng/mL NT-Pro-B Natriuret Pep pg/mL Total Protein (6.3-8.2) g/dL Albumin (3.5-5.0) g/dL Disposition <Paige Segura - Last Filed: 12/25/24 18:35> Is patient prescribed a controlled substance at d/c from ED?: No <Sammy Underwood - Last Filed: 01/18/25 15:36> Clinical Impression: Hypertension Disposition: HOME SELF-CARE Condition: Good Instructions (If sedation given, give patient instructions): Hypertension (ED) Additional Instructions: As we discussed, follow-up with the sap manager to have an echocardiogram and to have further evaluation. If your symptoms recur or if you are not feeling well in any way return to the emergency department. Prescriptions: hydroCHLOROthiazide 25 mg PO DAILY #15 tablet Metoprolol Tartrate 25 mg PO BID #60 tab Referrals: Houston Young MD [Primary Care Provider] - 1-2 days Haseeb Malik MD [Medical Doctor] - 1-2 days
--- NOTE | 2024-12-25 19:08 | XR ---
EXAMINATION TYPE: XR chest 2V DATE OF EXAM: 12/25/2024 7:03 PM COMPARISON: None CLINICAL INDICATION: Female, 44 years old with history of Chest pain, shortness of breath; [facility] TECHNIQUE: XR chest 2V Frontal and lateral views of the chest. FINDINGS: Lungs/Pleura: There is no evidence of pleural effusion, focal consolidation, or pneumothorax. Pulmonary vascularity: Unremarkable. Heart/mediastinum: Cardiomediastinal silhouette is unremarkable. Musculoskeletal: No acute osseous pathology. Other findings: None IMPRESSION: No acute cardiopulmonary disease/process. [facility], , 12/25/2024 7:06 PM
[2024-12-25 19:15] LABS: Basophils # (A) 0.07 10*3/uL (0.00-0.10); Basophils % (A) 0.8 %; Eosinophils # (A) 0.09 10*3/uL (0.04-0.35); HCT 34.8 % (37.2-46.3); HGB 11.8 g/dL (12.0-15.0); Lymphocytes # (A) 2.32 10*3/uL (0.90-5.00); Lymphocytes % (A) 26.2 %; MCH 29.4 pg (27.0-32.0); MCHC 33.9 g/dL (32.0-37.0); MCV 86.8 fL (80.0-97.0); Mean Platelet Volume 11.3 fL (9.5-12.2); Monocytes # (A) 0.38 10*3/uL (0.20-1.00); Monocytes % (A) 4.3 %; Neutrophils # (A) 5.99 10*3/uL (1.80-7.70); Neutrophils % (A) 67.5 %; Platelet Count 385 10*3/uL (140-440); RBC 4.01 10*6/uL (4.10-5.20); RDW 12.5 % (11.5-14.5); WBC 8.87 10*3/uL (4.50-10.00)
[2024-12-25 19:33] LABS: ALT 28 U/L (4-34); AST 37 U/L (14-36); African American GFR (CKD) >90 (>60 ml/min/1.73 sqM); Albumin 4.3 g/dL (3.5-5.0); Alkaline Phosphatase 71 U/L (38-126); Anion Gap 9 mmol/L; Blood Urea Nitrogen 11 mg/dL (7-17); Calcium 8.9 mg/dL (8.4-10.2); Carbon Dioxide 21 mmol/L (22-30); Chloride 107 mmol/L (98-107); Glucose 109 mg/dL (74-99); Non-African American GFR(CKD) >90 (>60 ml/min/1.73 sqM); Sodium 137 mmol/L (137-145); Total Bilirubin 0.7 mg/dL (0.2-1.3); Total Protein 7.6 g/dL (6.3-8.2)
[2024-12-25 19:35] LABS: INR 0.9 (<1.2)
[2024-12-25 19:38] LABS: Partial Thromboplastin Time 21.9 sec (22.0-30.0)
[2024-12-25 19:40] LABS: NT-Pro-B-Type Natriuretic Pept 3470 pg/mL
[2024-12-25 19:56] LABS: Potassium 4.9 mmol/L (3.5-5.1)
[2024-12-25] MEDS: ALBUTEROL HFA INHALER INHALATION STA (20:47)
[2024-12-25] MEDS: FUROSEMIDE 10 MG/ML 4 ML VIAL IV STA (21:01)
[2024-12-25] MEDS: hydrALAZINE HCL 20 MG/ML 1 ML VIAL IVP STA (21:02)
[2024-12-25] MEDS: NITROGLYCERIN OINT 1 INCH/GM PACKET TOPICAL STA (21:02)
[2024-12-25] MEDS: ACETAMINOPHEN TAB 325 MG TAB PO STA (21:39)
--- NOTE | 2024-12-26 00:45 | CT ---
EXAM: CT Angiography Chest With Intravenous Contrast CLINICAL HISTORY: ITS.REASON CT Reason: dyspnea, possible PE TECHNIQUE: Axial computed tomographic angiography images of the chest with intravenous contrast. CTDI is 51 mGy and DLP is 905.7 mGy-cm. This CT exam was performed using one or more of the following dose reduction techniques: automated exposure control, adjustment of the mA and/or kV according to patient size, and/or use of iterative reconstruction technique. MIP reconstructed images were created and reviewed. COMPARISON: No relevant prior studies available. FINDINGS: LUNGS: No focal consolidation, pleural effusion, or pneumothorax. HEART: Within normal limits. VASCULATURE: No large or central pulmonary embolism. Evaluation is limited due to suboptimal contrast bolus timing. Consider repeat exam, if clinically indicated. THYROID: Within normal limits. MEDIASTINUM + LYMPH NODES: Within normal limits. SUPERIOR ABDOMEN: Small hiatal hernia. Hepatic steatosis. Cholecystectomy. MUSCULOSKELETAL: Within normal limits. IMPRESSION: No large or central pulmonary embolism. Evaluation is limited due to suboptimal contrast bolus timing. Consider repeat exam, if clinically indicated.
[2024-12-26 00:54] VITALS: BP 138/92; PULSE 93; RESP 20; TEMP 98.1
== END 2024-12-26 00:58 | disposition home or self-care (01) ==
LOC: EC 18:00
DX: I10 Essential (primary) hypertension (principal); Z88.8 Allergy status to other drugs, medicaments and biological substances
CPT/HCPCS: 36415; 94640; 93005; 85379; 83880; 80053; 83605; 83735; 84484; 85025; 85610; 85730; 71046; 71275; 99285; 96374; 96375; J0360; Q9967; J1938